=== PATIENT | female | born 1935 | race Caucasian/White ===

== ENCOUNTER 2022-05-18 11:34 | Inpatient (IN) | payer OTHER ==
[~2022-05-18] VITALS: Ht 149.9 cm; Wt 60.8 kg
[2022-05-18 11:35] VITALS: BP 144/49
--- NOTE | 2022-05-18 11:35 | NUR ---
PT TO ER BED 4 VIA [facility]
[2022-05-18] MEDS ORDERED: DOPPLER MC ONE (13:04)
[2022-05-18 13:08] LABS: BASOPHILS # (AUTO) 0.1 K/uL (0.00-0.22); BASOPHILS % (AUTO) 0.8 % (0.0-2.0); EOSINOPHILS # (AUTO) 0.2 K/uL (0-0.4); HEMATOCRIT 41.2 % (36-48); HEMOGLOBIN 14.1 g/dL (12.0-16.0); LYMPHOCYTES # (AUTO) 2.1 K/uL (2.5-16.5); LYMPHOCYTES % (AUTO) 25.5 % (20.5-51.1); MEAN CORPUSCULAR HEMOGLOBIN 32 pg (27-31); MEAN CORPUSCULAR HGB CONC 34 g/dL (33-37); MEAN CORPUSCULAR VOLUME 94.8 fL (80-94); MONOCYTES # (AUTO) 0.5 K/uL (0.8-1.0); MONOCYTES % (AUTO) 5.8 % (1.7-9.3); NEUTROPHILS # (AUTO) 5.3 K/uL (1.8-7.7); NEUTROPHILS % (AUTO) 64.9 % (42.2-75.2); PLATELET COUNT (AUTO) 320 K/uL (140-450); RED BLOOD CELL COUNT(AUTO) 4.35 MIL/uL (4.20-5.40); RED CELL DISTRIBUTION WIDTH 12.8 % (11.6-13.7); WHITE BLOOD COUNT (AUTO) 8.2 K/uL (4.8-10.8)
[2022-05-18 13:53] LABS: ALBUMIN 3.2 g/dL (3.4-5.0); ASPARTATE AMINOTRANSFERASE 21 U/L (15-37); CARBON DIOXIDE 27.7 mmol/L (21-32); CHLORIDE 102 mmol/L (98-107); CREATININE 0.8 mg/dL (0.6-1.3); GLUCOSE 141 mg/dL (74-106); POTASSIUM 4.7 mmol/L (3.5-5.1); SODIUM SERUM 141 mmol/L (136-145); TOTAL BILIRUBIN 0.4 mg/dL (0.0-1.0); UREA NITROGEN, BLOOD 13 mg/dL (7-18)
--- NOTE | 2022-05-18 14:45 | NUR ---
86YO FEMALE PT BIBA FROM HOME DUE TO NEAR SYNCOPE. PER [facility], PT WAS ASSISTED BY CAREGIVER TO FLOOR DURING EPISODE. DENIES LOC OR INJURY TO HEAD. PT STATES "LOSING BALANCE" , DNIES DIZZINESS. DENIES PAIN AT THIS TIME. PT ABLE TO MOVE EXTREMITIES WITHOUT DISCOMFORT. PT IN NO VISIBLE DISTRESS. PT AAOX4 , SPEAKING IN FULL SENTENCES. PER [facility], PT WAS GIVEN ALL MORNING MEDS PRIOR TO TRANSFER. PT HAS RECENT L 4 AND 5 FRACTURE. STATES TAKING TYLENOL TO CONTROL PAIN. HX: DIMENTIA, DIABETES, HTN
--- NOTE | 2022-05-18 14:51 | NUR ---
PT TAKEN TO CT VIA [facility]
--- NOTE | 2022-05-18 15:15 | NUR ---
PT SWABBED FOR COVID(YAZ). HANDED TO OFFICE EXECUTIVE
[2022-05-18 16:12] LABS: APPEARANCE,URINE CLEAR (CLEAR); BILIRUBIN,URINE NEGATIVE (NEGATIVE); BLOOD, URINE NEGATIVE (NEGATIVE); COLOR,URINE YELLOW (YELLOW); LEUKOCYTE ESTERASE ,URINE NEGATIVE (NEGATIVE); NITRITE, URINE NEGATIVE (NEGATIVE); UGLUCOSE NEGATIVE (NEGATIVE)
[2022-05-18] MEDS ORDERED: ACETAMINOPHEN 325 MG TAB PO ONE (16:35)
[2022-05-18] MEDS ORDERED: HYDR-4004 PO (17:02)
[2022-05-18] MEDS ORDERED: INSU100V19 SQ ×2 (17:03→17:06)
[2022-05-18] MEDS ORDERED: ACETAMINOPHEN 325 MG TAB PO PRN (17:05)
[2022-05-18] MEDS ORDERED: MORPHINE SULFATE 2 MG/ML SYR IVP PRN (17:05)
[2022-05-18] MEDS ORDERED: ZOLPIDEM 5 MG TAB PO PRN (17:05)
[2022-05-18] MEDS ORDERED: DOCUSATE SODIUM 100 MG GELCAP PO PRN (17:05)
[2022-05-18] MEDS: NACL 0.9% 1,000 ML IV SCH (17:05)
[2022-05-18] MEDS ORDERED: guaiFENesin DM 200/20 MG-10 ML 10 ML UDC PO PRN (17:05)
[2022-05-18] MEDS ORDERED: ONDANSETRON 4 MG/2 ML VIAL IM/IVP PRN (17:05)
[2022-05-18] MEDS ORDERED: POTASSIUM CHLORIDE 10 MEQ TABER PO PRN (17:05)
[2022-05-18] MEDS ORDERED: HYDROcodone/APAP 7.5/325 MG 1 TAB PO PRN (17:05)
[2022-05-18] MEDS ORDERED: LANTUS SUBQ (17:06)
[2022-05-18] MEDS ORDERED: LEVO75CA3 PO (17:08)
[2022-05-18] MEDS ORDERED: NAPR-54 PO (17:09)
[2022-05-18] MEDS ORDERED: ROSU10TA34 PO (17:10)
[2022-05-18] MEDS ORDERED: MULT-2253 PO (17:12)
[2022-05-18] MEDS ORDERED: FISH100053 PO (17:13)
[2022-05-18] MEDS ORDERED: CALC-105 PO (17:13)
--- NOTE | 2022-05-18 17:30 | NUR ---
med recon completed
[2022-05-18 17:33] LABS: AMYLASE 44 U/L (25-115); LIPASE 74 U/L (73-393)
--- NOTE | 2022-05-18 17:44 | NUR ---
ULTRASOUND AT BEDSIDE
[2022-05-18] MEDS ORDERED: ACETAMINOPHEN 325 MG TAB ONE (18:46)
--- NOTE | 2022-05-18 19:09 | NUR ---
ULTRASOUND AT BEDSIDE
--- NOTE | 2022-05-18 19:27 | NUR ---
REPORT GIVEN TO RICKIE MOFFETT. ALL QUESTIONS ANSWERED . TRANSFER OF CARE AT THIS TIME
--- NOTE | 2022-05-18 19:30 | NUR ---
PATIENT RESTING IN BED WITH MOTHER AT BEDSIDE. DOESNT APPEAR TO BE IN DISTRESS. CALM AND COOPERATIVE. BED IN LOWEST POSITION. ALL NEEDS MET
[2022-05-18 21:12] LABS: BARBITURATE, URINE NEGATIVE ng/ml (NEG <=200); BENZODIAZEPINE, URINE NEGATIVE ng/mL (NEG <=200); CANNABINOID, URINE NEGATIVE ng/mL (NEG <=50); COCAINE, URINE NEGATIVE ng/mL (NEG <=300); OPIATE, URINE NEGATIVE ng/mL (NEG <=2000); PHENCYCLIDINE SCREEN,URINE NEGATIVE ng/mL (NEG <=25)
--- NOTE | 2022-05-18 21:47 | NUR ---
CALL MIKE , FOR UPDATES
--- NOTE | 2022-05-19 | NUR ---
REPOSITIONED PATIENT IN BED. PROVIDED MORE COVERS. BED LOW AND LOCKED. ALL NEEDS MET
--- NOTE | 2022-05-19 01:00 | NUR ---
ASSISTED PATIENT INTO REPOSITIONING. PATIENT RR EVEN AND UNLABORED. BED LOW AND LOCKED. ALL NEEDS MET
--- NOTE | 2022-05-19 04:55 | NUR ---
PATIENT RESTING IN BED. RR APPEAR TO BE EVEN AND UNLABORED. BED LOW AND LOCKED. ALL NEED MET.
--- NOTE | 2022-05-19 07:10 | NUR ---
PATIENT CHANGED AND REPOSITIONED. ALL NEED MET
--- NOTE | 2022-05-19 07:33 | NUR ---
REPORT GIVEN TO BETTIE CORADO. TRANSFER OF CARE
[2022-05-19 07:40] LABS: BASOPHILS # (AUTO) 0.1 K/uL (0.00-0.22); BASOPHILS % (AUTO) 0.8 % (0.0-2.0); EOSINOPHILS # (AUTO) 0.3 K/uL (0-0.4); HEMATOCRIT 37.6 % (36-48); LYMPHOCYTES # (AUTO) 3.6 K/uL (2.5-16.5); LYMPHOCYTES % (AUTO) 42.2 % (20.5-51.1); MEAN CORPUSCULAR HEMOGLOBIN 32 pg (27-31); MEAN CORPUSCULAR HGB CONC 35 g/dL (33-37); MEAN CORPUSCULAR VOLUME 93.4 fL (80-94); MONOCYTES # (AUTO) 0.4 K/uL (0.8-1.0); NEUTROPHILS # (AUTO) 4.1 K/uL (1.8-7.7); PLATELET COUNT (AUTO) 307 K/uL (140-450); RED BLOOD CELL COUNT(AUTO) 4.03 MIL/uL (4.20-5.40); RED CELL DISTRIBUTION WIDTH 12.3 % (11.6-13.7); WHITE BLOOD COUNT (AUTO) 8.6 K/uL (4.8-10.8)
[2022-05-19 07:47] LABS: ANION GAP 12.5 (8-16); CARBON DIOXIDE 26.1 mmol/L (21-32); CHLORIDE 104 mmol/L (98-107); CREATININE 0.7 mg/dL (0.6-1.3); GLUCOSE 125 mg/dL (74-106); POTASSIUM 3.6 mmol/L (3.5-5.1); SODIUM SERUM 139 mmol/L (136-145); UREA NITROGEN, BLOOD 12 mg/dL (7-18)
[2022-05-19] MEDS ORDERED: DEXTROSE 50% 50 ML SYR IVP PRN (07:55)
[2022-05-19] MEDS ORDERED: LEVOTHYROXINE 0.075 MG TAB PO SCH (08:02)
--- NOTE | 2022-05-19 08:25 | NUR ---
pt calm and resting, on monitor, vss, provided meal and tolerated well.
[2022-05-19] MEDS: ATORVASTATIN 20 MG TAB PO SCH (08:43)
[2022-05-19] MEDS ORDERED: ROSUVASTATIN CALCIUM 10 MG PO SCH (09:00)
[2022-05-19] MEDS ORDERED: LEVOTHYROXINE SODIUM 75 MCG PO SCH (09:00)
[2022-05-19] MEDS ORDERED: VITAMIN D3 PO SCH (09:00)
[2022-05-19] MEDS ORDERED: CALCIUM CARBONATE PO SCH (09:00)
[2022-05-19] MEDS ORDERED: CRUSHER, PILL MC ONE (09:50)
--- NOTE | 2022-05-19 09:55 | NUR ---
PT MOVED TO ER BED 5
[2022-05-19] MEDS: hydroCHLOROthiazide 25 MG TAB PO SCH (10:55)
[2022-05-19] MEDS: CALCIUM CARB/VIT-D 500 MG/200 IU 1 TAB PO SCH (10:55)
[2022-05-19] MEDS: NACL 0.9% 1,000 ML IV SCH (10:59)
[2022-05-19] MEDS: BLOOD GLUCOSE MONITORING 1 DEV DEV FS SCH ×3 (11:53→20:56)
[2022-05-19] MEDS: INSULIN LISPRO SLIDING SCALE 100 UNITS/ML VIAL SUBQ PRN ×2 (11:58→21:00)
--- NOTE | 2022-05-19 12:03 | NUR ---
Patient was offered her lunch tray. Patient is sitting up eating her lunch.
--- NOTE | 2022-05-19 15:00 | NUR ---
Patient was provided with stephen-care. Patient has needs met.
--- NOTE | 2022-05-19 15:39 | NUR ---
DC [age] YRS OLD FEMALE PATIENT WAS ADMITTED FROM HOME WITH A DX OF NEAR SYNCOPE. PATIENT HAS A HX OF THYROID DISEASE, DEMENTIA, CARDIAC DISORDER ,CABG AND DM. CXR NORMAL. 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 CAROTID US NO HEMODYNAMICALLY SIGNIFICANT STENOSIS. RAPID COVID TEST NEGATIVE. ADMINISTERED IVF AND CONTINUED HOME MEDS. DC PLAN TO GO HOME WHEN STABLE. CM TO FOLLOW. Addendum: 05/20/22 at 1609 by Sagrario Travis RN DC PLANNING: CM SPOKE WITH THE PATIENT WHICH IS ALERT AND ORIENTED X 4 ABLE TO MAKE NEEDS KNOWN, PT STATED SHE LIVES AT HOME WITH AND GREAT GRAND SON. PT HAS A PHLEBOTOMY TECHNOLOGIST FOR 10 HRS A DAY, PHLEBOTOMY TECHNOLOGIST AT THIS TIME ON VACATION. PATIENT ALSO MENTIONED HAS A HOME HEALTH WITH [facility] AND WOULD LIKE TO CONTINUE THE CARE WITH [facility]. DC PLAN TO GO HOME WHEN STABLE. CM TO FOLLOW
--- NOTE | 2022-05-19 16:11 | NUR ---
Patient will be admitted to care of Dr. Dong. Admited to Telemetry. Will go to room 110-b. Belongings list completed. Report to BETTIE Gallegos.
--- NOTE | 2022-05-19 16:29 | NUR ---
PATIENT HAS BEEN SCREENED AND CATEGORIZED MODERATE NUTRITION RISK. PATIENT WILL BE SEEN WITHIN 3-5 DAYS OF ADMISSION. / JANET RICHARDSON RD
--- NOTE | 2022-05-19 16:50 | NUR ---
CAME BACK FROM LUNCH WITH PT ON THE UNIT. PER CHARGE NURSE ARRIVED AT 1620. PT IS AWAKE, A&OX3. UNABLE TO ANSWER THE YEAR, STATED IT WAS "2007." ON RA WITH BREATHING UNLABORED. SKIN IS WARM, DRY, AND INTACT. IV IS INTACT ON THE RIGHT HAND 22 GAUGE. PT IS STABLE. PLAN OF CARE DISCUSSED.
[2022-05-19 17:00] VITALS: BP 158/62
--- NOTE | 2022-05-19 19:45 | NUR ---
ENDORSED PT TO COMMUNITY LIVING INSTRUCTOR NURSE FOR CONTINUITY OF CARE. PT IS STABLE. PLAN OF CARE DISCUSSED.
--- NOTE | 2022-05-19 19:46 | NUR ---
RECEIVED REPORT FROM DAY SHIFT NURSE. PT IS AWAKE, A&OX3. DAUGHTER AT BEDSIDE. ON RA WITH BREATHING EQUAL AND UNLABORED. SKIN IS WARM, DRY, AND INTACT. IV ON RIGHT HAND 22 GAUGE. FALL PRECAUTIONS IN PLACE. CALL LIGHT WITHIN REACH. WILL CONTINUE TO MONITOR.
[2022-05-19 20:00] VITALS: BP 148/58
--- NOTE | 2022-05-19 20:00 | NUR ---
PT AND DAUGHTER REPORTED THAT SHE TAKES TYLENOL AT [place]IGHT[place] FOR BACK PAIN. INFORMED . ORDERED TYLENOL Q6PRN FOR MILD PAIN.
[2022-05-19] MEDS ORDERED: ACETAMINOPHEN 325 MG TAB PO PRN (20:55)
--- NOTE | 2022-05-19 21:00 | NUR ---
PT'S BLOOD SUGAR WAS 183. 2 UNITS INSULIN GIVEN PER PROTOCOL.
[2022-05-20] VITALS: BP 138/67
--- NOTE | 2022-05-20 | NUR ---
VITAL SIGNS STABLE. PT ASSISTED TO RESTROOM. CHANGED PT'S DIAPER. PT TOLERATED WELL. NO COMPLAINS OF DIZZINESS OR PAIN. WILL CONTINUE TO MONITOR.
[2022-05-20] MEDS: NACL 0.9% 1,000 ML IV SCH (02:25)
--- NOTE | 2022-05-20 02:30 | NUR ---
PT ASLEEP. BREATHING EQUAL AND UNLABORED. NO DISTRESS NOTED. ALL PRECAUTIONS IN PLACE.CALL LIGHT WITHIN REACH.WILL CONTINUE TO MONITOR.
[2022-05-20 04:00] VITALS: BP 148/59
[2022-05-20] MEDS ORDERED: LEVOTHYROXINE 0.075 MG TAB PO SCH (06:30)
[2022-05-20] MEDS: INSULIN LISPRO SLIDING SCALE 100 UNITS/ML VIAL SUBQ PRN ×2 (06:35→17:38)
--- NOTE | 2022-05-20 06:40 | NUR ---
SCHEDULED MEDICATIONS GIVEN. BLOOD SUGAR WAS 178. 2 UNITS INSULIN GIVEN PER PROTOCOL. PT CLEANED AND CHANGED.PT TOLERATED WELL.ALL PRECAUTIONS IN PLACE. WILL CONTINUE TO MONITOR.
[2022-05-20] MEDS: BLOOD GLUCOSE MONITORING 1 DEV DEV FS SCH ×3 (06:42→16:44)
[2022-05-20 06:51] LABS: CARBON DIOXIDE 27.6 mmol/L (21-32); CHLORIDE 103 mmol/L (98-107); CREATININE 0.7 mg/dL (0.6-1.3); GLUCOSE 156 mg/dL (74-106); POTASSIUM 3.6 mmol/L (3.5-5.1); SODIUM SERUM 139 mmol/L (136-145); UREA NITROGEN, BLOOD 16 mg/dL (7-18)
[2022-05-20 06:55] LABS: BASOPHILS # (AUTO) 0.1 K/uL (0.00-0.22); BASOPHILS % (AUTO) 0.7 % (0.0-2.0); EOSINOPHILS # (AUTO) 0.3 K/uL (0-0.4); EOSINOPHILS % (AUTO) 3.1 % (0.0-4.0); HEMATOCRIT 37.5 % (36-48); HEMOGLOBIN 12.9 g/dL (12.0-16.0); LYMPHOCYTES # (AUTO) 3.4 K/uL (2.5-16.5); LYMPHOCYTES % (AUTO) 38.5 % (20.5-51.1); MEAN CORPUSCULAR HEMOGLOBIN 32 pg (27-31); MEAN CORPUSCULAR HGB CONC 34 g/dL (33-37); MEAN CORPUSCULAR VOLUME 94.3 fL (80-94); MONOCYTES # (AUTO) 0.5 K/uL (0.8-1.0); MONOCYTES % (AUTO) 5.8 % (1.7-9.3); NEUTROPHILS # (AUTO) 4.5 K/uL (1.8-7.7); NEUTROPHILS % (AUTO) 51.9 % (42.2-75.2); PLATELET COUNT (AUTO) 274 K/uL (140-450); RED BLOOD CELL COUNT(AUTO) 3.98 MIL/uL (4.20-5.40); RED CELL DISTRIBUTION WIDTH 12.5 % (11.6-13.7); WHITE BLOOD COUNT (AUTO) 8.7 K/uL (4.8-10.8)
--- NOTE | 2022-05-20 07:11 | NUR ---
PT IS STABLE. NO ACUTE EVENTS THROUGHOUT THE NIGHT. ALL NEEDS MET. ALL PRECAUTIONS IN PLACE. CALL LIGHT WITHIN REACH. WILL ENDORSE TO AM SHIFT NURSE.
--- NOTE | 2022-05-20 07:20 | NUR ---
RECEIVED BEDSIDE REPORT FROM BODY FORMER NURSE FOR CONTINUITY OF CARE. PT IS ASLEEP. CHEST RISE AND FALL SYMMETRICAL. ON RA WITH BREATHING UNLABORED. DIAPER IN PLACE, DRY. PERIODS OF INCONTINENCE. PER BODY FORMER NURSE PT IS AMBULATORY WITH STANDBY ASSIST. PT IS STABLE. PLAN OF CARE DISCUSSED.
[2022-05-20 08:00] VITALS: BP 120/61
[2022-05-20] MEDS: CALCIUM CARB/VIT-D 500 MG/200 IU 1 TAB PO SCH (08:41)
[2022-05-20] MEDS: ATORVASTATIN 20 MG TAB PO SCH (08:42)
--- NOTE | 2022-05-20 08:42 | NUR ---
PT RESTING ON BED, RESPIRATION EVEN, RESPIRATION EVEN, UNLABORED, NO DISTRESS NOTED. ADMINISTERED PO MEDICATION PER MD ORDERED. PT SEEMED HAS VERY POOR APPETITE, ENCOURAGED PT TO EAT AND DRINK SHE CAN TOLERATED. PT HAD A CUP OF MILD AT THIS TIME. ALL SAFETY MEASURE IN PLACE, CALL LIGHT WITHIN REACH. WILL CONTINUE TO MONITOR.
[2022-05-20] MEDS: hydroCHLOROthiazide 25 MG TAB PO SCH (08:43)
--- NOTE | 2022-05-20 11:40 | NUR ---
BS CHECKED 142 AT THIS TIME, NO INSULIN COVERAGE NEEDED AT THIS TIME. PT REMAIN CALM AND NO DISTRESS NOTED AT THIS TIME.
[2022-05-20 12:00] VITALS: BP 154/66
--- NOTE | 2022-05-20 13:50 | NUR ---
SPOKE WITH PT'S DAUGHTER MIKE KINCAID REGARDING PT WILL DISCHARGE TODAY PER MD ORDER. SCHEDULE COAL CAGER TIME AROUND 1800 TODAY.
--- NOTE | 2022-05-20 13:56 | NUR ---
NOTIFIED DR SANZ REGARDING PT'S DAUGHTER MIKE WANT TO SPEAK WITH , DR SANZ MADE AWARE AND SAID WILL GIVE PT'S DAUGHTER A CALL.
[2022-05-20 13:58] VITALS: BP 120/61
--- NOTE | 2022-05-20 15:32 | NUR ---
PT SLEEPING ON BED, RESPIRATION EVEN, UNLABORED, NO DISTRESS NOTED. ALL SAFETY MEASURE IN PLACE, CALL LIGHT WITHIN REACH.
[2022-05-20 16:00] VITALS: BP 138/62
--- NOTE | 2022-05-20 16:54 | NUR ---
DR BRYANT AT BEDSIDE AND INFORMED PT THAT SHE WILL HAVE SURGERY TOMORROW MORNING AT 0730
--- NOTE | 2022-05-20 17:32 | NUR ---
P.T. NOTES P.T. EVINGRID COMPLETED; REFER TO JUILSSA FOR DETAILS. Addendum: 05/20/22 at 1745 by Angela Bates PT SUPINE: TI=[id number]/67 HR=72 SITTING: VI=110/75 HR=87 STANDING: BP=82/40 SF=968 SITTING POST GAIT: BB=376/78 HR=90
--- NOTE | 2022-05-20 18:20 | NUR ---
PT DISCHARGE AT THIS TIME, PT PICK BY BY DAUGHTER MIKE, DISCHARGE INSTRUCTION AND MEDICATION INSTRUCTION GIVEN AND EXPLAINED TO PT AND PT'S DAUGHTER, DAUGHTER MADE AWARE AND SIGNED DISCHARGE PAPERWORK. IV REMOVED, SITE INTACT, NO BLEEDING. PERSONAL BELONGING RETURNED. NAME BAND REMOVED. PT DISCHARGED WITHOUT ANY DISTRESS AT THIS TIME.
== END 2022-05-20 18:20 | disposition home or self-care (01) | DRG 74 ==
LOC: MED 11:34 → MTU 17:06
PROVIDERS: ADMIT Student in an Organized Health Care Education/Training Program; ATTEND Student in an Organized Health Care Education/Training Program
DX: G90.8 Other disorders of autonomic nervous system (principal); E44.1 Mild protein-calorie malnutrition; I10 Essential (primary) hypertension; E16.2 Hypoglycemia, unspecified; E78.5 Hyperlipidemia, unspecified; E03.9 Hypothyroidism, unspecified; E11.9 Type 2 diabetes mellitus without complications; Z20.822 Contact with and (suspected) exposure to COVID-19; Z68.27 Body mass index [BMI] 27.0-27.9, adult; Z88.6 Allergy status to analgesic agent; Z88.5 Allergy status to narcotic agent; Z88.0 Allergy status to penicillin; Z88.8 Allergy status to other drugs, medicaments and biological substances; Z79.899 Other long term (current) drug therapy; Z79.4 Long term (current) use of insulin
CPT/HCPCS: 36415; 70450; 71045; 80048; 80053; 80305; 81003; 82150; 82550; 82948; 83690; 83880; 84484; 85025; 87081; 93005; 93880; 97112; 97163-GP; 99285; J1815; Q0092